=== PATIENT | female | born 1955 | race Caucasian/White ===

== ENCOUNTER 2021-09-14 11:50 | Emergency (ER) | payer BC, SELFPAY ==
--- NOTE | ~2021-09-14 | CT_ITS ---
EXAMINATION: CT brain wo con INDICATION: Head injury COMPARISON: None TECHNIQUE: Standard unenhanced head CT. The dose-length product (DLP) was 605.33 mGy-cm. The mA was a djusted according to patient size. Iterative reconstruction technique was employed. FINDINGS: There is no intracranial hemorrhage, acute infarction, or abnormal mass lesion. The ventric les are normal. There is no abnormal mass effect or midline shift. The calix-white matter differentiat ion is normal. The basal cisterns are patent. The orbits are normal. There is opacification and expan antoni of a right ethmoidal air cell, likely chronic. IMPRESSION: 1. No acute intracranial abnormality. Reviewed, dictated and finalized at location A.
[2021-09-14 11:52] VITALS: BP 163/82; PULSE 85; RESP 18; TEMP 36.6; O2SAT 98
--- NOTE | 2021-09-14 14:41 | ED.GENADULT ---
HPI - General Adult General Chief complaint: Head Injury Stated complaint: Head Injury Time Seen by Provider: 09/14/21 14:22 Source: RN notes reviewed History of Present Illness HPI narrative: Patient presents emergency department from home for head injury. Patient states this morning she was walking out of a store when she tripped over the curb and fell she states she landed backwards on her buttocks and fell backwards and struck her head on a brick wall. States has had pain in the posterior scalp since that time. States she not having loss of consciousness she denies any laceration states she has had residual headache she denies any vision changes neck pain numbness or tingling of the extremities chest pain shortness of breath back pain or any other symptoms Related Data Home Medications Medication Instructions Recorded Confirmed lisinopril 40 mg tablet tablet 09/14/21 metformin 1,000 mg tablet tablet 09/14/21 Allergies Allergy/AdvReac Type Severity Reaction Status Date / Time Penicillins Allergy Hives Verified 09/14/21 11:56 Review of Systems Review of Systems: Gen.: Denies fevers or chills Eyes: Denies eye pain or visual change ENT: Denies facial pain Respiratory: Denies shortness of breath CV: Denies chest pain GI: Denies abdominal pain nausea, emesis Musculoskeletal: Denies back pain or muscle pain Neuro: See HPI Skin: Denies rash Except as documented, all other systems reviewed and negative COUNTS INCLUDE 234 BEDS AT [facility] Past Medical History Medical History (Updated 09/14/21 @ 14:48 by Laureano Sanchez DO) Patient denies significant medical history Social History Social History (Updated 09/14/21 @ 14:42 by Laureano Sanchez DO) Smoking status: Never smoker Exam Narrative: APPEARANCE: No acute distress, nontoxic, resting in bed EYES: EOMI, PERRL HEENT: Normocephalic, small area of tenderness and swelling of her posterior scalp no open wound OMM TMs clear bilaterally nares patent no facial tenderness Neck: Supple no midline tenderness palpation forage motion without pain RESPIRATORY: No respiratory distress Clear to auscultation bilaterally with no rhonchi wheezing or rales. CARDIOVASCULAR: Regular rate and rhythm without murmurs rubs or gallops. ABDOMINAL: Soft, nontender, nondistended, no rebound or guarding MUSCULOSKELETAl: Moves all extremities. No clubbing, cyanosis or edema. NEURO: Awake and alert x 4. Following commands, speech normal, no focal deficits SKIN:: Warm, dry. No rashes lesions or abrasions PSYCHIATRIC: Normal affect/mood, Course Vital Signs Vital signs: Vital Signs Temperature 97.9 F 09/14/21 11:52 Pulse Rate 85 09/14/21 11:52 Respiratory Rate 18 09/14/21 11:52 Blood Pressure 163/82 H 09/14/21 11:52 Pulse Oximetry 98 09/14/21 11:52 Oxygen Delivery Room Air 09/14/21 11:52 Temperature 97.9 F 09/14/21 11:52 Pulse Rate 85 09/14/21 11:52 Respiratory Rate 18 09/14/21 11:52 Blood Pressure 163/82 H 09/14/21 11:52 Pulse Oximetry 98 09/14/21 11:52 Oxygen Delivery Room Air 09/14/21 11:52 Medical Decision Making Vital Signs Vital Signs: Vital Signs Temperature 97.9 F 09/14/21 11:52 Pulse Rate 85 09/14/21 11:52 Respiratory Rate 18 09/14/21 11:52 Blood Pressure 163/82 H 09/14/21 11:52 Pulse Oximetry 98 09/14/21 11:52 Oxygen Delivery Room Air 09/14/21 11:52 Temperature 97.9 F 09/14/21 11:52 Pulse Rate 85 09/14/21 11:52 Respiratory Rate 18 09/14/21 11:52 Blood Pressure 163/82 H 09/14/21 11:52 Pulse Oximetry 98 09/14/21 11:52 Oxygen Delivery Room Air 09/14/21 11:52 Imaging Data Radiologist's impression: ITS Impressions Head CT 09/14/21 14:44 IMPRESSION: 1. No acute intracranial abnormality. Discharge Plan Discharge Clinical Impression: Contusion of head Patient Disposition: Home, Self-Care Condition: Stable Instructions: Antibiotic Form, Head Injury (ED) [place]
== END 2021-09-14 14:59 | disposition home or self-care (01) ==
PROVIDERS: Emergency Provider Emergency Medicine
DX: S00.03XA Contusion of scalp, initial encounter (principal); W10.1XXA Fall (on)(from) sidewalk curb, initial encounter
CPT/HCPCS: 70450; 99284